=== PATIENT | female | born 1970 | race Caucasian/White ===

== ENCOUNTER → 2018-07-04 | Outpatient (CLI) | payer OTHER ==
[~2018-07-04] MED LIST: ENALAPRIL MALEAT5 MG; HYDROCHLOROTHIA25 MG; ORPH100T PO; SYNTHROID50 MCG; ULTRACET PO
== END | disposition home or self-care (01) ==
LOC: SONOGRAMA 08:41
DX: E04.1 Nontoxic single thyroid nodule (principal)